=== PATIENT | female | born 1995 | race American Indian/Alaskan Native ===

== ENCOUNTER 2016-10-19 23:49 | Emergency (ER) | payer OTHER ==
[2016-10-20 01:42] VITALS: BP 139/86
--- NOTE | 2016-10-20 03:44 | XRay Report ---
FINAL REPORT EXAM: XR FOREARM RT HISTORY: r/o glass in wound TECHNIQUE: Frontal and lateral views of right forearm. PRIORS: None. FINDINGS: No apparent fracture or dislocation. Mild soft tissue edema over the dorsal aspect of proximal-mid diaphysis. No radiopaque soft tissue foreign body identified. IMPRESSION: 1. No acute osseous abnormality. 2. Soft tissue edema.
[2016-10-20] MEDS ORDERED: BOOSTRIX IM ONE (07:47)
[2016-10-20] MEDS ORDERED: NACL 0.9% IR ONE (07:48)
[2016-10-20] MEDS ORDERED: XYLOCAINE 1% MPF 5 mL INFILTRATI ONE (07:48)
[2016-10-20] MEDS ORDERED: TRIPLE ANTIBIOTIC TP ONE (07:48)
[2016-10-20] MEDS ORDERED: MOTRIN PO ONE (07:48)
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
== END 2016-10-20 09:56 | disposition home or self-care (01) ==
LOC: ED 23:49
DX: S51.811A Laceration without foreign body of right forearm, initial encounter (principal); F17.200 Nicotine dependence, unspecified, uncomplicated
CPT/HCPCS: 90471; 90715; A6250

== ENCOUNTER 2019-04-30 20:30 | Inpatient (IN) | payer MEDICAID, OTHER ==
[2019-05-01] MEDS ORDERED: DINOPROSTONE 10 MG VAG SUPP VG ONE (02:59)
[2019-05-01] MEDS ORDERED: LACTATED RINGERS 1,000 ML IV SCH (03:00)
[2019-05-01 03:24] LABS: Hematocrit 39.6 % (30.3-42.9); Hemoglobin 13.1 gm/dl (10.1-14.3); Mean Corpuscular HGB Conc 33 % (30-34); Mean Corpuscular Volume 90 fl (79-97); Platelet Count 248 K/mm3 (140-440); Red Blood Count 4.42 M/mm3 (3.65-5.03); Red Cell Distribution Width 14.8 % (13.2-15.2)
--- NOTE | 2019-05-01 05:50 | History and Physical Report ---
History of Present Illness Date of examination: 05/01/19 Date of admission: 04/30/19 20:33 History of present illness: EDC Confirmation: 05/01/2019 Gestational Age: 10 4/7 weeks Past History : 3P0 Past Medical History: Reviewed history from 02/17/2016 and no changes required: Negative Past Medical History Past Surgical History: Reviewed history from 02/17/2016 and no changes required: D&C: EAB Past Medical History Abnormal PAP: negative Family Hx: DM and HTN no known family hx cancer Social Hx: Warehouse Patient is single former smoker no ETOH/Drug use Smoking History: Patient is a former smoker. Infection History Hx of STD: HSV HIV Risk Eval: no Hepatitis B Risk Eval: low risk Personal hx. of genital herpes: yes Partner hx. of genital herpes: no Rash, Viral, or Febrile illness since last LMP? no Varicella/Chicken Pox Status: Previous Disease Genetic History Congenital Heart Defect: Mom: no Dad: no Osmani Disease: Mom: no Dad: no Thalassemia Mom: no Dad: no Neural Tube Defect Mom: no Dad: no Down's Syndrome Mom: no Dad: no Rylan-Sachs Mom: no Dad: no Sickle Cell Disease/Trait Mom: no Dad: no Hemophilia Mom: no Dad: no Muscular Dystrophy Mom: no Dad: no Cystic Fibrosis Mom: no Dad: no [place] Chorea Mom: no Dad: no Mental Retardation Mom: no Dad: no Fragile X Mom: no Dad: no Other Genetic/Chromosomal Disorder Mom: no Dad: no Child w/other defect Mom: no Dad: no Enviromental Exposures Xray Exposure: no Medication, drug, or alcohol use since LMP: no Chemical/Other Exposure: no Exposure to Cat Liter: no Hx of Parvovirus (Fifth Disease): no Occupational Exposure to Children: none Active Medications (reviewed today): None Current Allergies (reviewed today): * LATEX (Critical) Laboratory Results Routine Urinalysis Leukocytes: negative Nitrite: negative Urobilinogen: negative Protein: negative Blood: negative Ketone: negative Bilirubin: negative Glucose: negative Urine HCG: positive Review of Systems General Denies fever, chills, sweats, anorexia, fatigue, weakness, malaise, weight loss and sleep disorder. Complains of nausea. Denies vomiting, headache, swelling of legs, abdominal pain, vaginal discharge, vaginal bleeding and contractions. Denies vaginal discharge, incontinence, dysuria, hematuria, urinary frequency, amenorrhea, menorrhagia, abnormal vaginal bleeding, pelvic pain, genital sores, decreased libido, painful periods, painful sex, urinary urgency, hot flashes, vaginal dryness, vaginal itching and vaginal odor. CV Denies chest pains, palpitations, syncope, dyspnea on exertion, orthopnea, PND and peripheral edema. Resp Denies cough, dyspnea at rest, excessive sputum, hemoptysis, wheezing and pleurisy. GI Denies nausea, vomiting, diarrhea, constipation, change in bowel habits, abdominal pain, melena, hematochezia, jaundice, gas/bloating, indigestion/heartburn, dysphagia and odynophagia. Endo Denies cold intolerance, heat intolerance, polydipsia, polyphagia, polyuria and unusual weight change. Breast Denies left breast lump, right breast lump, nipple discharge, bloody discharge from nipple, breast pain, abnormal mammogram and breast enlargement. MS Denies back pain, joint pain, joint swelling, muscle cramps, muscle weakness, stiffness, arthritis, sciatica, restless legs, leg pain at night and leg pain with exertion. Derm Denies rash, itching, dryness and suspicious lesions. Neuro Denies paralysis, paresthesias, headache, seizures, tremors, vertigo, transient blindness, frequent falls, frequent headaches and difficulty walking. Psych Denies depression, anxiety, irritability and mood swings. Eyes Denies blurring, diplopia, irritation, discharge, vision loss, eye pain and photophobia. ENT Denies earache, ear discharge, tinnitus, decreased hearing, nasal congestion, nosebleeds, sore throat and hoarseness. Allergy Denies urticaria, allergic rash, hay fever and recurrent infections. Heme Denies abnormal bruising, bleeding and enlarged lymph nodes. PHYSICAL EXAM HEENT: PERRLA, normal conjunctiva, external nose and nasal mucosa normal, oropharynx clear Neck/Thyroid: supple, thyroid normal Skin no significant abnormal lesions or rashes Chest: respiratory effort normal, clear to auscultation Breasts: normal without skin changes or masses CV: regular, normal S1-S2, no murmur, no rub, no gallop Abdomen: normal bowel sounds, soft, nontender, no HSM Musculoskeletal: grossly normal ROM in joints, no joint tenderness or muscle weakness Neuro: grossly normal DTRs, sensation, strength, cranial nerves Extremities: no clubbing, cyanosis, or edema CLINICAL REHAB SPECIALIST Exams Vulva/Vagina: No lesions, normal BUS, normal rugae Cervix: No lesions; no cervical motion tenderness Uterus: normal size and position, midline, mobile Fundal Ht: 10 FHT: + Adnexae: no masses or tenderness Rectovaginal: no masses or tenderness Past History - Obstetrical History Expected Date of Delivery: 05/01/19 Actual Gestation: 40 Week(s) 0 Day(s) : 3 Para: 0 Hx # Term Pregnancies: 0 Number of Pregnancies: 0 Spontaneous Abortions: 1 Induced : 1 Number of Living Children: 0 Medications and Allergies Allergies Allergy/AdvReac Type Severity Reaction Status Date / Time latex AdvReac Anaphylaxis Verified 05/01/19 02:38 Latex, Natural Rubber AdvReac Anaphylaxis Verified 05/01/19 02:38 Active Meds: Active Medications Lactated Ringer's (Lactated Ringers) 1,000 mls @ 125 mls/hr IV DIRECT RICHARD Last Admin: 05/01/19 04:04 Dose: 125 mls/hr Documented by: - Vital Signs Vital signs: Vital Signs Temp Resp 98.8 F 16 05/01/19 01:55 05/01/19 01:55 Temp Pulse Resp BP Pulse Ox 98.8 F 93 H 16 125/72 05/01/19 01:55 05/01/19 03:52 05/01/19 01:55 05/01/19 03:52 - Physical Exam Breasts: Positive: deferred Cardiovascular: Regular rate, Normal S1, Normal S2 Lungs: Positive: Normal air movement Abdomen: Positive: normal appearance, soft, normal bowel sounds. Negative: distention, tenderness Genitourinary (Female): Positive: normal perenium Vulva: both: normal Vagina: Positive: normal moisture. Negative: discharge Cervix: Negative: lesion, discharge Uterus: Positive: normal size, normal contour Adnexa: both: normal Anus/Rectum: Positive: normal perianal skin, heme negative. Negative: rectal mass, hemorrhoids Extremities: Positive: normal Deep Tendon Reflex Grade: Normal +2 - Obstetrical FHR: category 1 Uterine Contraction Monitor Mode: External Cervical Dilatation: 0 Cervical Effacement Percentage: 50 station: -2 Uterine Contraction Pattern: Irregular Uterine Tone Measurement Phase: Resting Uterine Contraction Intensity: Mild Results Result Diagrams: 05/01/19 03:00 Abnormal lab results 05/01/19 Range/Units 03:00 WBC 12.1 H (4.5-11.0) K/mm3 All other labs normal. HBsAg Screen Negative Negative *1 RPR Non Reactive Non Reactive *2 Rubella Antibodies, IgG 2.59 index Immune >0.99 *3 Non-immune <0.90 Equivocal 0.90 - 0.99 Immune >0.99 ABO Grouping O *4 Rh Factor Positive *5 Please note: Prior records for this patient's ABO / Rh type are not available for additional verification. Antibody Screen Negative Negative *6 WBC 9.2 x10E3/uL 3.4-10.8 *7 RBC 3.90 x10E6/uL 3.77-5.28 *8 Hemoglobin 11.4 g/dL 11.1-15.9 *9 Hematocrit 35.6 % 34.0-46.6 *10 MCV 91 fL 79-97 *11 MCH 29.2 pg 26.6-33.0 *12 MCHC 32.0 g/dL 31.5-35.7 *13 RDW 13.6 % 12.3-15.4 *14 Platelets 284 x10E3/uL 150-450 *15 Please note reference interval change Neutrophils 73 % Not Estab. *16 Lymphs 20 % Not Estab. *17 Monocytes 6 % Not Estab. *18 Eos 1 % Not Estab. *19 Basos 0 % Not Estab. *20 ! Immature Cells <No Reported Value> *21 Neutrophils (Absolute) 6.6 x10E3/uL 1.4-7.0 *22 Lymphs (Absolute) 1.9 x10E3/uL 0.7-3.1 *23 Monocytes(Absolute) 0.6 x10E3/uL 0.1-0.9 *24 Eos (Absolute) 0.1 x10E3/uL 0.0-0.4 *25 Baso (Absolute) 0.0 x10E3/uL 0.0-0.2 *26 ! Immature Granulocytes 0 % Not Estab. *27 ! Immature Grans (Abs) 0.0 x10E3/uL 0.0-0.1 *28 ! NRBC <No Reported Value> *29 Hematology Comments: <No Reported Value> *30 Tests: (2) Panel [id number] ([id number]) HIV Screen 4th Generation wRfx Non Reactive Non Reactive *31 Tests: (3) HCV Ab w/Rflx to Verification ([id number]) ! HCV Ab <0.1 s/co ratio 0.0-0.9 *32 Tests: (4) Comment: ([id number]) ! Comment: SPRCS *33 Non reactive HCV antibody screen is consistent with no HCV infection, unless recent infection is suspected or other evidence exists to indicate HCV infection. Tests: (5) Urine Culture, Routine ([id number]) Urine Culture, Routine [A] Final report *34 Tests: (6) Result ([id number]) ! Result 1 [A] BETAGB *35 Beta hemolytic Streptococcus, group B Less than 10,000 colonies/mL Penicillin and ampicillin are drugs of choice for treatment of beta-hemolytic streptococcal infections. Susceptibility testing of penicillins and other beta-lactam agents approved by the FDA for treatment of beta-hemolytic streptococcal infections need not be performed routinely because nonsusceptible isolates are extremely rare in any beta-hemolytic streptococcus and have not been reported for Streptococcus pyogenes (group A). (CLSI) ! Result 2 MUG *36 Mixed urogenital darrian 10,000-25,000 colony forming units per mL Assessment and Plan 24yo at 40w IOL for IUGR Pt is GBS+, HSV2+ All orders in EMR. Cervidil in place. Pt aware of plan and that induction may take several days. All questions addressed. - Patient Problems (1) Group B Streptococcus carrier state affecting Onset Date: ~05/01/19 Current Visit: Yes Status: Acute Plan to address problem: GBS+ urine Will treat per protocol when in active labor (2) IUGR (intrauterine growth restriction) Onset Date: ~05/01/19 Current Visit: Yes Status: Acute Plan to address problem: Pt here today for IOL due to IUGR EFW 7% from [facility] visit to [facility] (3) Herpes genitalis Onset Date: ~05/01/19 Current Visit: Yes Status: Acute Plan to address problem: Pt has been on prophylactic Valtrex since 35 weeks. Vagina and vulva inspected on exam no evidence of outbreak Pt denies any prodrome
[2019-05-01] MEDS ORDERED: AMPICILLIN/NS 2 GM/100 ML 2 GM/100 ML BAG IV ONE (06:18)
[2019-05-01] MEDS ORDERED: LIDOCAINE (2%) 20 MG/1 ML VIAL 20 ML MDV INFILTRATI ONE (06:18)
[2019-05-01] MEDS ORDERED: TERBUTALINE 1 MG/1 ML INJ SUB-Q PRN (06:18)
[2019-05-01] MEDS ORDERED: MINERAL OIL 30 ML ORAL LIQD PO PRN (06:18)
[2019-05-01] MEDS ORDERED: ePHEDrine SULFATE 50 MG/1 ML INJ IV PRN (06:18)
[2019-05-01] MEDS ORDERED: ONDANSETRON 4 MG/2 ML INJ IV PRN (06:18)
[2019-05-01] MEDS ORDERED: OXYTOCIN 20 UNIT/1000ML DRIP 20 UNITS/1,000 ML BAG IV SCH (07:00)
[2019-05-01 09:23] LABS: Bilirubin,Urine Negative (Negative); Color,Urine Yellow (Yellow)
[2019-05-01 09:24] LABS: Blood,Urine Small (Negative); Urobilinogen,Urine < 0.2 mg/dL (<2.0)
[2019-05-01 09:33] LABS: Bacteria,Urine 1+ /HPF (Negative)
[2019-05-01] MEDS ORDERED: valACYclovir 500 MG TAB PO SCH (10:00)
[2019-05-01] MEDS: LACTATED RINGERS 1,000 ML IV SCH ×2 (12:09→22:50)
[2019-05-01] MEDS: AMPICILLIN/NS 1 GM/50 ML 1 GM/50 ML BAG IV SCH ×3 (12:55→22:49)
--- NOTE | 2019-05-01 13:21 | Event Note ---
Date: 05/01/19 Discussed with the patient the nature of serial induction. Questions answered. Discussed the risks of and. indications for operative intervention. Will continue induction until this evening. At that time reassess if labor has not started we'll stop induction. We'll allow to eat and possibly repeat Cervidil this evening. If labor is progressing or other indications to continue induction we'll do so at that time.
[2019-05-01] MEDS ORDERED: OXYTOCIN DRIP 30,000 MILLIUNITS/500 ML BAG IV ONE (21:49)
--- NOTE | 2019-05-01 21:53 | Event Note ---
Date: 05/01/19 No change in cervix patient sylwia cervidl came out this afternoon Mild contraction irregular will place on low dose pitocin
[2019-05-01] MEDS: fentaNYL 100 MCG/2 ML INJ IV PRN (22:47)
[2019-05-02] MEDS: fentaNYL 100 MCG/2 ML INJ IV PRN (02:54)
[2019-05-02] MEDS: AMPICILLIN/NS 1 GM/50 ML 1 GM/50 ML BAG IV SCH (05:51)
[2019-05-02] MEDS: LACTATED RINGERS 1,000 ML IV SCH ×2 (05:54→06:51)
[2019-05-02] MEDS ORDERED: BUPIVACAINE/PF (0.25%) 2.5 MG/ML 10 ML VIAL INFILTRATI ONE (06:26)
[2019-05-02] MEDS ORDERED: ePHEDrine SULFATE 50 MG/1 ML INJ IV PRN (07:03)
[2019-05-02] MEDS ORDERED: NALOXONE 2 MG/2 ML INJ IV PRN (07:03)
--- NOTE | 2019-05-02 07:03 | Anesthesia Consultation ---
Anesthesia Consult and Med Hx Date of service: 05/02/19 - Airway Anesthetic Teeth Evaluation: Good ROM Head & Neck: Adequate Mental/Hyoid Distance: Adequate Mallampati Class: Class II Intubation Access Assessment: Good - Pulmonary Exam CTA: Yes - Cardiac Exam Cardiac Exam: RRR - Pre-Operative Health Status ASA Pre-Surgery Classification: ASA2, Emergency Proposed Anesthetic Plan: Epidural - Pulmonary Hx Asthma: No - Cardiovascular System Hx Hypertension: No - Central Nervous System Hx Seizures: No Hx Psychiatric Problems: No - Endocrine Hx Renal Disease: No Hx Hypothyroidism: No Hx Hyperthyroidism: No - Hematic Hx Anemia: No Hx Sickle Cell Disease: No - Other Systems Hx Alcohol Use: No
--- NOTE | 2019-05-02 07:03 | Anesthesia Day of Surgery ---
Anesthesia Day of Surgery - Day of Surgery Patient Examined: Yes Patient H&P Reviewed: Yes Patient is NPO: Yes
--- NOTE | 2019-05-02 07:53 | Progress Note ---
Assessment and Plan patient comfortable, continue close monitoring and anticipate . - Patient Problems (1) 40 weeks gestation of Current Visit: No Status: Acute (2) Group B Streptococcus carrier state affecting Onset Date: ~05/01/19 Current Visit: Yes Status: Acute (3) IUGR (intrauterine growth restriction) Onset Date: ~05/01/19 Current Visit: No Status: Acute Subjective - Subjective Date of service: 05/02/19 Principal diagnosis: IUP @ 401, IOL for IUGR Patient reports: no new complaints (comfortable s/p epidural) Objective - Vital Signs Vital Signs: Vital Signs - 12hr 05/01/19 05/01/19 05/01/19 20:21 21:07 22:47 Pulse Rate 89 91 H Respiratory 18 Rate Blood Pressure 125/64 144/68 O2 Sat by Pulse Oximetry 05/02/19 05/02/19 05/02/19 01:03 02:53 02:54 Pulse Rate 85 77 Respiratory 20 Rate Blood Pressure 128/66 O2 Sat by Pulse 99 Oximetry 05/02/19 05/02/19 05/02/19 02:58 03:03 03:08 Pulse Rate 79 79 82 Respiratory Rate Blood Pressure O2 Sat by Pulse 98 95 97 Oximetry 05/02/19 05/02/19 05/02/19 03:13 03:18 03:23 Pulse Rate 81 81 81 Respiratory Rate Blood Pressure O2 Sat by Pulse 96 95 94 Oximetry 05/02/19 05/02/19 05/02/19 03:24 03:28 03:32 Pulse Rate 81 83 85 Respiratory Rate Blood Pressure O2 Sat by Pulse 94 94 94 Oximetry 05/02/19 05/02/19 05/02/19 03:33 03:38 03:43 Pulse Rate 85 79 78 Respiratory Rate Blood Pressure O2 Sat by Pulse 94 96 96 Oximetry 05/02/19 05/02/19 05/02/19 03:48 03:53 03:58 Pulse Rate 78 82 81 Respiratory Rate Blood Pressure O2 Sat by Pulse 96 96 96 Oximetry 05/02/19 05/02/19 05/02/19 04:03 04:08 04:23 Pulse Rate 81 89 80 Respiratory Rate Blood Pressure O2 Sat by Pulse 97 96 99 Oximetry 05/02/19 05/02/19 05/02/19 04:28 04:33 04:38 Pulse Rate 81 78 80 Respiratory Rate Blood Pressure O2 Sat by Pulse 98 99 99 Oximetry 05/02/19 05/02/19 05/02/19 04:43 04:48 05:49 Pulse Rate 81 83 83 Respiratory Rate Blood Pressure 137/83 O2 Sat by Pulse 97 99 Oximetry 05/02/19 05/02/19 05/02/19 06:19 06:24 06:29 Pulse Rate 86 84 90 Respiratory Rate Blood Pressure O2 Sat by Pulse 99 98 99 Oximetry 05/02/19 05/02/19 05/02/19 06:35 06:38 06:40 Pulse Rate 90 93 H 93 H Respiratory Rate Blood Pressure 135/74 O2 Sat by Pulse 99 84 Oximetry 05/02/19 05/02/19 05/02/19 06:41 06:44 06:45 Pulse Rate 88 82 85 Respiratory Rate Blood Pressure 146/74 142/75 O2 Sat by Pulse 99 Oximetry 05/02/19 05/02/19 05/02/19 06:47 06:50 06:53 Pulse Rate 82 87 81 Respiratory Rate Blood Pressure 142/71 135/64 133/63 O2 Sat by Pulse 98 Oximetry 05/02/19 05/02/19 05/02/19 06:55 06:56 06:59 Pulse Rate 85 82 80 Respiratory Rate Blood Pressure 143/68 142/68 O2 Sat by Pulse 98 Oximetry 05/02/19 05/02/19 05/02/19 07:00 07:02 07:05 Pulse Rate 82 80 87 Respiratory Rate Blood Pressure 144/69 137/67 O2 Sat by Pulse 96 98 Oximetry 05/02/19 05/02/19 05/02/19 07:08 07:10 07:11 Pulse Rate 85 89 85 Respiratory Rate Blood Pressure 136/69 141/72 O2 Sat by Pulse 97 Oximetry 05/02/19 05/02/19 05/02/19 07:14 07:15 07:17 Pulse Rate 93 H 92 H 89 Respiratory Rate Blood Pressure 136/72 138/74 O2 Sat by Pulse 99 Oximetry 05/02/19 05/02/19 05/02/19 07:20 07:23 07:25 Pulse Rate 85 85 82 Respiratory Rate Blood Pressure 143/78 139/76 O2 Sat by Pulse 96 98 Oximetry 05/02/19 05/02/19 05/02/19 07:26 07:29 07:30 Pulse Rate 82 83 82 Respiratory Rate Blood Pressure 128/67 134/71 O2 Sat by Pulse 100 Oximetry 05/02/19 05/02/19 05/02/19 07:32 07:35 07:38 Pulse Rate 74 83 79 Respiratory Rate Blood Pressure 136/74 128/68 134/71 O2 Sat by Pulse 99 Oximetry 05/02/19 05/02/19 05/02/19 07:40 07:41 07:44 Pulse Rate 79 76 81 Respiratory Rate Blood Pressure 134/72 130/73 O2 Sat by Pulse 100 Oximetry 05/02/19 05/02/19 07:45 07:47 Pulse Rate 77 79 Respiratory Rate Blood Pressure 121/64 O2 Sat by Pulse 100 Oximetry - Exam Cardiovascular: Regular rate Lungs: Normal air movement Abdomen: Present: normal appearance, soft Vulva: both: normal Uterus: Present: normal, fundal height above umbilicus (OU) FHR: auscultation normal, category 2 ( following her right) Uterine Contraction Monitor Mode: Internal Cervical Dilatation: 4.5 Cervical Effacement Percentage: 100 station: +1 Uterine Contraction Frequency (min): 3-5 Uterine Contraction Duration: 60 Uterine Contraction Pattern: Regular Uterine Tone Measurement Phase: Contraction Uterine Contraction Intensity: Strong/Firm Extremities: normal Deep Tendon Reflex Grade: Normal +2 - Labs Labs: Abnormal Labs 05/01/19 05/01/19 03:00 08:53 WBC 12.1 H Urine Blood Small A Urine WBC (Auto) 71.0 H Laboratory Results - last 24 hr 05/01/19 08:53 Urine Color Yellow Urine Turbidity Hazy Urine pH 6.0 Ur Specific [place] 1.015 Urine Protein 30 mg/dl Urine Glucose (UA) Trace Urine Ketones Small Urine Blood Small A Urine Nitrite Negative Urine Bilirubin Negative Urine Urobilinogen < 0.2 Ur Leukocyte Esterase Large Urine WBC (Auto) 71.0 H Urine RBC (Auto) 44.0 U Epithel Cells (Auto) 2.0 Urine Bacteria (Auto) 1+
[2019-05-02] MEDS ORDERED: fentaNYL-BUPIV 2 MCG/ML-0.125% 200 MCG/100 ML BAG EPIDURAL SCH (08:00)
--- NOTE | 2019-05-02 08:28 | Procedure Note ---
OB Delivery Note - Delivery Date of Delivery: 05/02/19 ( female) [place] Table Assembler: MISTI WALKER Estimated blood loss: 300cc - Vaginal Delivery presentation: vertex Delivery position: OA (CRISTINA) Intrapartum events: mult.variable deceleratio, other(please specify) (IUGR) Delivery induction: cervidil Delivery augmentation: pitocin Delivery monitor: internal FHT, internal uterine Route of delivery: Delivery placenta: spontaneous (to pathology) Delivery cord: 3 umbilical vessels Episiotomy: none Delivery laceration: none Anesthesia: epidural Delivery comments: female infant delivered over intact perineum, CRISTINA. 's cord clamped and handed off to JENNIFER team for assessment. Cord blood collected. placenta del intact and complete. no lacerations to repair. EBL 300, apgars 7/9, wt 6#1oz. mother and remain LDR stable. - A at 1 minute: 7 at 5 minutes: 9 Gender: Female (6#1oz)
[2019-05-02] MEDS ORDERED: diphenhydrAMINE 25 MG CAP PO PRN (11:16)
[2019-05-02] MEDS ORDERED: ACETAMINOPHEN 325 MG TAB PO PRN (11:16)
[2019-05-02] MEDS ORDERED: WITCH HAZEL/ GLYCERIN PAD TP PRN (11:16)
[2019-05-02] MEDS ORDERED: PROMETHAZINE 25 MG TAB PO PRN (11:16)
[2019-05-02] MEDS ORDERED: LANOLIN/ZINC/DIMETHICONE (LANSINOH) 7 GM TP PRN (11:16)
[2019-05-02] MEDS ORDERED: MAGNESIUM HYDROXIDE (MOM) ORAL LIQD UDC PO PRN (11:16)
[2019-05-02] MEDS ORDERED: OXYTOCIN 20 UNIT/1000ML DRIP 20 UNITS/1,000 ML BAG IV SCH (11:16)
[2019-05-02] MEDS: PRENATAL VIT27-FE FUMARATE-FOLIC ACID VIT TAB PO SCH (12:09)
[2019-05-02] MEDS: FERROUS SULFATE 325 MG TAB PO SCH ×2 (12:09→21:40)
[2019-05-02] MEDS: DOCUSATE SODIUM 100 MG CAP PO SCH ×2 (12:10→21:40)
[2019-05-02] MEDS: IBUPROFEN 600 MG TAB PO SCH ×3 (12:10→23:46)
--- NOTE | 2019-05-02 14:06 | Post Anesthesia Evaluation ---
- Post Anesthesia Evaluation Patient Participated: Yes Airway Patent: Yes Stable Respiratory Function: Yes Nausea/Vomiting: No Temp > 96.8F: Yes Pain Manageable: Yes Adequeate Hydration: Yes Anesthesia Complications: No Block Receding Appropriately: Yes Patient on Ventilator: No
[2019-05-02 20:41] LABS: Hematocrit 35.9 % (30.3-42.9); Hemoglobin 11.9 gm/dl (10.1-14.3)
[2019-05-03] MEDS ORDERED: TETANUS,DIPH,PERTUSS(ACELL) VACCINE 0.5 ML SYRINGE IM ONE (06:00)
[2019-05-03] MEDS: IBUPROFEN 600 MG TAB PO SCH ×3 (06:10→22:01)
--- NOTE | 2019-05-03 08:28 | Discharge Summary ---
Providers - Providers Date of Admission: 04/30/19 20:33 Date of discharge: 05/03/19 (Pt agrees to discharge) Attending physician: TAYLOR CHAIREZ Primary care physician: TAYLOR CHAIREZ Hospitalization Reason for admission: induction of labor Delivery: Episiotomy: none Laceration: 1st degree Incision: normal Other procedures: none complications: none Discharge diagnosis: IUP at term delivered [place] baby: female Hospital course: Umcomplicated vaginal delivery Pt resting in bed vss, ff@ umb, H/H , pt stable, P: Pt agrees to go home, BC desires OCP, pt to be D/C with instructions Condition at discharge: Good Disposition: DC-01 TO HOME OR SELFCARE - Discharge Diagnoses (1) (normal spontaneous vaginal delivery) Status: Acute Plan - Discharge Medications Prescriptions: Lidocain2.5%/Prilocai2.5% [Emla] 5 gm TP ONCE PRN #1 tube PRN Reason: Pain Ibuprofen [Motrin 800 MG tab] 800 mg PO Q8HR PRN #30 tablet PRN Reason: Pain - Provider Discharge Summary Activity: routine, no sex for 6 weeks, no heavy lifting 4 weeks, no strenuous exercise Diet: routine Instructions: routine Additional instructions: [] Smoking cessation referral if applicable(refer to patient education folder for contact #) [] Refer to [facility] Booklet Call your doctor immediately for: * Fever > 100.5 * Heavy vaginal bleeding ( >1 pad per hour) * Severe persistent headache * Shortness of breath * Reddened, hot, painful area to leg or breast * Drainage or odor from incision. * Keep incision clean and dry at all times and follow doctor's instructions regarding bathing/showering - Follow up plan Follow up: TAYLOR CHAIREZ MD [Primary Care Provider] - 05/29/19 (Congradulations! Please call [phone] to schedule you visit in 4 weeks. Take Motrin/Ibuprofen for cramping/pain. Call with concerns. AMANDA, [address], [address], [place], [address] ) )
[2019-05-03] MEDS: DOCUSATE SODIUM 100 MG CAP PO SCH ×2 (10:02→22:01)
[2019-05-03] MEDS: PRENATAL VIT27-FE FUMARATE-FOLIC ACID VIT TAB PO SCH (10:02)
[2019-05-03] MEDS ORDERED: FLU VACC QUAD 2019-20 (3 YR UP)/PF 60 MCG/0.5 ML SYRINGE IM ONE (12:00)
[2019-05-03] MEDS: FERROUS SULFATE 325 MG TAB PO SCH (22:01)
[2019-05-03 23:25] VITALS: BP 134/65
== END 2019-05-03 22:15 | disposition home or self-care (01) | DRG 774 ==
LOC: TRG 20:30 → LD 20:33 → OB 05-02 10:46
PROVIDERS: ADMIT Obstetrics & Gynecology; ATTEND Obstetrics & Gynecology
PROC: 10E0XZZ Delivery of Products of Conception, External Approach (ICD-10-PCS; principal; 2019-05-02)
PROC: 3E0P7VZ Introduction of Hormone into Female Reproductive, Via Natural or Artificial Opening (ICD-10-PCS; 2019-05-02)
PROC: 3E0R3BZ Introduction of Anesthetic Agent into Spinal Canal, Percutaneous Approach (ICD-10-PCS; 2019-05-02)
PROC: 00HU33Z Insertion of Infusion Device into Spinal Canal, Percutaneous Approach (ICD-10-PCS; 2019-05-02)
PROC: 3E0234Z Introduction of Serum, Toxoid and Vaccine into Muscle, Percutaneous Approach (ICD-10-PCS; 2019-05-03)
DX: O36.5930 Maternal care for other known or suspected poor fetal growth, third trimester, not applicable or unspecified (principal); O98.32 Other infections with a predominantly sexual mode of transmission complicating childbirth; O99.824 Streptococcus B carrier state complicating childbirth; A60.00 Herpesviral infection of urogenital system, unspecified; O76 Abnormality in fetal heart rate and rhythm complicating labor and delivery; O70.0 First degree perineal laceration during delivery; Z83.3 Family history of diabetes mellitus; Z3A.40 40 weeks gestation of pregnancy; Z23 Encounter for immunization; Z37.0 Single live birth; Z82.49 Family history of ischemic heart disease and other diseases of the circulatory system; Z87.891 Personal history of nicotine dependence; Z91.040 Latex allergy status; Z91.048 Other nonmedicinal substance allergy status
CPT/HCPCS: 36415; 81001; 85014; 85018; 85027; 86592; 86850; 86900; 86901; 87086; 90686; G0378; J0290; J2590; J3010; J7120